=== PATIENT | female | born 1990 | race Caucasian/White ===

== ENCOUNTER 2020-07-10 21:04 | Emergency (ER) | payer OTHER ==
[~2020-07-10 21:04] MED LIST: BENTYL10 MG PO; NAPROXEN500 MG PO; SKELAXIN800 MG PO; ZOFRAN4 MG PO
[2020-07-11] MEDS ORDERED: PROMETHEGA12.5 MG/SU PR (01:02)
[2020-07-11] MEDS ORDERED: PHENERGAN12.5 M1 PO (01:02)
== END 2020-07-11 01:20 | disposition home or self-care (01) ==
LOC: FER 21:04
DX: G43.909 Migraine, unspecified, not intractable, without status migrainosus (principal); F17.210 Nicotine dependence, cigarettes, uncomplicated
CPT/HCPCS: J1100; J1200; J1885; J2405; J2765; J7030

== ENCOUNTER 2021-01-29 12:07 | Emergency (ER) | payer OTHER ==
[~2021-01-29 12:07] MED LIST changes: +PHENERGAN12.5 M1 PO; +PROMETHEGA12.5 MG/SU PR
[2021-01-29 13:36] LABS: BILIRUBIN NEGATIVE (NEGATIVE); BLOOD 3+ Ery/uL (NEGATIVE); CLARITY CLEAR (CLEAR); COLOR YELLOW (YELLOW); GLUCOSE (U) NORMAL (NORMAL); LEUKOCYTES NEGATIVE Leu/uL (NEGATIVE); NITRITE NEGATIVE (NEGATIVE); PROTEIN NEGATIVE (NEGATIVE); SPECIFIC GRAVITY >=1.030 (1.001-1.030); UROBILINOGEN 0.2 mg/dL (0.2-1.0)
[2021-01-29 13:45] LABS: BACTERIA TRACE; URINARY RBC 20-50
[2021-01-29 14:47] LABS: BASOPHIL 0.6 % (0-2); EOSINOPHIL 5.4 % (0-5); HCT 42.4 % (37.0-47.0); HGB 13.8 g/dl (12.5-16.0); MCH 30.3 pg (25.0-31.0); MCHC 32.5 g/dL (32.0-36.0); MONOCYTE 6.2 % (0-12); NEUTROPHIL 64.2 % (41-80); NRBC 0; PLT 228 K/uL (150-400); RBC 4.56 M/uL (4.20-5.40); RDW 13.2 % (11.5-14.0); WBC 9.5 K/uL (4.0-10.5)
[2021-01-29 15:05] LABS: BUN/CREAT RATIO (CALC) 13.8 RATIO; CREATININE 0.65 mg/dL (0.51-0.95); POTASSIUM 4.3 mmol/L (3.5-5.1)
== END 2021-01-29 16:24 | disposition home or self-care (01) ==
LOC: FER 12:07
PROVIDERS: Emergency Medicine; Nurse Practitioner Family
DX: N94.6 Dysmenorrhea, unspecified (principal); I10 Essential (primary) hypertension; F17.210 Nicotine dependence, cigarettes, uncomplicated; Z88.1 Allergy status to other antibiotic agents
CPT/HCPCS: 36415; 80048; 81001; 85025; 87088; 99284; J7030

== ENCOUNTER 2021-04-01 00:03 | Emergency (ER) | payer OTHER ==
[2021-04-01 02:43] LABS: BASOPHIL 0.7 % (0-2); EOSINOPHIL 3.1 % (0-5); HCT 43.8 % (37.0-47.0); HGB 14.3 g/dl (12.5-16.0); LYMPHOCYTE 17.7 % (15-48); MCH 29.5 pg (25.0-31.0); MCHC 32.6 g/dL (32.0-36.0); MCV 90.3 fL (78.0-100.0); MPV 9.6 fL (6.0-9.5); NEUTROPHIL 72.5 % (41-80); NRBC 0; PLT 275 K/uL (150-400); RBC 4.85 M/uL (4.20-5.40); RDW 13.2 % (11.5-14.0); WBC 14.6 K/uL (4.0-10.5)
[2021-04-01 03:04] LABS: ALBUMIN 3.8 g/dL (3.4-5.0); BILIRUBIN - TOTAL 0.4 mg/dL (0.2-1.0); BUN/CREAT RATIO (CALC) 17.6 RATIO; C-REACTIVE PROTEIN 0.6 mg/dL (<=0.90); CREATININE 0.74 mg/dL (0.51-0.95); GLOBULIN (CALCULATION) 3.6 g/dL; POTASSIUM 3.9 mmol/L (3.5-5.1); TOTAL PROTEIN 7.4 g/dL (6.4-8.2)
[2021-04-01 03:38] LABS: BILIRUBIN NEGATIVE (NEGATIVE); BLOOD NEGATIVE Ery/uL (NEGATIVE); CLARITY CLEAR (CLEAR); COLOR YELLOW (YELLOW); GLUCOSE (U) NORMAL (NORMAL); LEUKOCYTES NEGATIVE Leu/uL (NEGATIVE); NITRITE NEGATIVE (NEGATIVE); PROTEIN TRACE (LOW) mg/dL (NEGATIVE); UROBILINOGEN 0.2 mg/dL (0.2-1.0); pH 7.5 (5.0-9.0)
[2021-04-01 04:41] LABS: CORONAVIRUS 2019 SARS-COV-2 NEGATIVE (NEGATIVE); INFLUENZA A NAA NEGATIVE (NEGATIVE)
[2021-04-01] MEDS ORDERED: ONDANSETRON ODT4 MG SL (05:16)
[2021-04-03 21:09] LABS: CHLAMYDIA TRACHOMATIS, NAA Negative (Negative); NEISSERIA GONORRHOEAE, NAA Negative (Negative)
== END 2021-04-01 05:41 | disposition home or self-care (01) ==
LOC: FER 00:03
PROVIDERS: Emergency Medicine Emergency Medical Services
DX: B34.9 Viral infection, unspecified (principal); I10 Essential (primary) hypertension; F17.200 Nicotine dependence, unspecified, uncomplicated; Z88.1 Allergy status to other antibiotic agents; Z20.822 Contact with and (suspected) exposure to COVID-19
CPT/HCPCS: 36415; 80053; 81003; 85025; 86140; 87040; 87210; 87491; 87591; J1885; J2270; J2405; J7030; U0002

== ENCOUNTER 2021-06-29 19:28 | Emergency (ER) | payer OTHER ==
[~2021-06-29 19:28] MED LIST changes: +ONDANSETRON ODT4 MG SL
[2021-06-29 20:03] LABS: BASOPHIL 0.6 % (0-2); EOSINOPHIL 3.2 % (0-5); HCT 48.7 % (37.0-47.0); HGB 16.5 g/dl (12.5-16.0); LYMPHOCYTE 27.1 % (15-48); MCH 30.1 pg (25.0-31.0); MCHC 33.9 g/dL (32.0-36.0); MCV 88.9 fL (78.0-100.0); MONOCYTE 6.8 % (0-12); MPV 9.5 fL (6.0-9.5); NEUTROPHIL 61.7 % (41-80); NRBC 0; PLT 330 K/uL (150-400); RBC 5.48 M/uL (4.20-5.40); RDW 12.9 % (11.5-14.0); WBC 13.9 K/uL (4.0-10.5)
[2021-06-29 20:21] LABS: BUN/CREAT RATIO (CALC) 15.6 RATIO; CREATININE 0.77 mg/dL (0.51-0.95); POTASSIUM 3.9 mmol/L (3.5-5.1)
[2021-06-29] MEDS ORDERED: FIORICET1 EACH PO (21:52)
== END 2021-06-29 22:04 | disposition home or self-care (01) ==
LOC: FER 19:28
PROVIDERS: Nurse Practitioner Family
DX: G43.909 Migraine, unspecified, not intractable, without status migrainosus (principal); I10 Essential (primary) hypertension
CPT/HCPCS: 36415; 80048; 85025; J1100; J1200; J1885; J2405; J7030